=== PATIENT | female | born 1945 | race Two or more races ===

== ENCOUNTER 2021-12-06 08:00 | Outpatient (CLI) | payer OTHER | END 2021-12-06 08:30 | disposition home or self-care (01) | LOC: PPH VACUNA 08:00 | PROVIDERS: ATTEND Emergency Medicine Pediatric Emergency Medicine | DX: Z23 Encounter for immunization (principal) ==

== ENCOUNTER 2025-04-27 06:54 | Day surgery (SDC) | payer OTHER ==
[2025-04-22 10:59] VITALS: BP 150/97
[~2025-04-27] VITALS: Ht 162.6 cm; Wt 70.3 kg
[~2025-04-27 06:54] MED LIST: CIPROFLOXACIN IN 5 % DEXTROSE 400 MG/200 ML PIGGYBAG IV ONE; KEPPRA1000 MG PO; PEPCID AC20 MG
[2025-04-27] MEDS ORDERED: LIDOCAINE HCL 1%/EPINEPHRINE 20ML VIAL IJ ONE ×2 (07:08→07:23)
[2025-04-27] MEDS ORDERED: GENTAMICIN SULFATE 40 MG/ML VIAL ONE (07:22)
[2025-04-27] MEDS ORDERED: CEFAZOLIN SODIUM 1,000 MG VIAL ONE (07:23)
[2025-04-27] MEDS ORDERED: MORPHINE SULFATE 4 MG/ML VIAL IV ONE (10:30)
[2025-04-27] MEDS ORDERED: TRAM1TAB98 PO (10:52)
[2025-04-27] MEDS ORDERED: MACROBID 100 M100 MG PO (10:53)
== END 2025-04-27 12:35 | disposition home or self-care (01) ==
LOC: SURH 06:54 → CIR.AMB 06:54 → O/R 06:54 → SURH 07:00 → O/R 12:35 → CIR.AMB 12:35 → SURH 13:15 → EDSTATUS 13:15 → SURH 14:07
PROVIDERS: ATTEND Obstetrics & Gynecology Gynecology
DX: N81.5 Vaginal enterocele (principal); N81.6 Rectocele; N81.11 Cystocele, midline; Z88.0 Allergy status to penicillin